=== PATIENT | male | born 2005 | race Two or more races ===

== ENCOUNTER 2025-02-08 21:40 | Emergency (ER) | payer MEDICAID, SELFPAY ==
[2025-02-08 21:41] VITALS: BMI 25.8
[2025-02-08 22:15] VITALS: BP 127/78; PULSE 94; RESP 17; TEMP 37.8; O2SAT 99
--- NOTE | 2025-02-08 22:15 | XR_ITS ---
Examination: PA chest single view Technique: Upright PA chest single view Date and time: February 08, 2025, 10:20 PM Indications: Shortness of breath today. Findings: Normal heart size Lungs are clear. The osseous structures are intact Impression: No active disease
--- NOTE | 2025-02-08 22:15 | PD.EDFEVER ---
ED Fever RME/HPI General Chief Complaint: Fever Stated Complaint: FEVER, LEFT TESTICULAR PAIN Time Seen by Provider: 02/08/25 22:16 Arrival date/time: 02/08/25 21:40 RME / HPI RME / HPI Narrative: See MDM for Dr. Meek's HPI documentation. Related Data Previous Rx's ?Medication ?Instructions ?Recorded ibuprofen 600 mg tablet 600 mg PO Q6H PRN fever or pain 05/25/22 #30 tabs ciprofloxacin HCl 500 mg tablet 500 mg PO BID #20 tabs 02/09/25 (Cipro) Allergies Allergy/AdvReac Type Severity Reaction Status Date / Time No Known Allergies Allergy Verified 02/08/25 21:41 Review of Systems Review of Systems Systems Reviewed: All systems reviewed, normal except as documented Physical Exam Narrative Physical exam: See MDM for Dr. Meek's physical exam documentation. Course Course Course Narrative: CXR is ordered for determining the etiology of fever. Quality Measures none Orders Category Date Time Status Bedside COVID-19 Antigen Test NOW Care 02/08/25 22:15 Completed Bedside Influenza A&B Antigen Test NOW Care 02/08/25 22:15 Completed US testicular Stat Exams 02/08/25 22:52 Completed XR chest 1V portable Stat Exams 02/08/25 22:15 Completed UA, C/S IF [Urinalysis, C/S if Indicated] Stat Lab 02/08/25 23:11 Completed Acetaminophen Tab [Tylenol ES Tab] Med 02/08/25 22:15 Discontinued 1,000 mg PO X1 ONE Azithromycin Po [Zithromax PO] Med 02/09/25 00:17 Discontinued 1,000 mg PO X1 ONE cefTRIAXone [Rocephin] 1,000 mg Med 02/09/25 00:17 Discontinued Lidocaine 1% 20 ml [Xylocaine 1% 20 ML] 2.1 ml IM X1 predniSONE Med 02/08/25 22:15 Discontinued 60 mg PO X1 ONE Vital Signs Vital signs: Vital Signs Temperature 100.0 F 02/08/25 22:15 Pulse Rate 94 02/08/25 22:15 Respiratory Rate 17 02/08/25 22:15 Blood Pressure 127/78 02/08/25 22:15 Pulse Oximetry (%) 99 02/08/25 22:15 Oxygen Delivery Method Room Air 02/08/25 22:15 Fever MDM Narrative [facility] Narrative:: This section includes all my notes and documentations, including HPI, PE, and ED course. Benja Meek MD HPI: 19yo male here with fever, chills, cough, and body aches for the last couple days. And worsening left testicular pain with swelling and redness for about a week. No dysuria or hematuria. No other complaints reported. ROS: All negative except as documented in HPI. Physical Exam: General: Alert and oriented. No acute distress when remaining still. Eyes: Conjunctivae and lids clear. ENT: No nasal congestion. Pharynx normal. TM normal bilaterally. Neck: Supple. Heart: RRR. Lungs: No respiratory distress. Good air movement with scattered rhonchi. Abdomen: Soft and nontender. Normal bowel sounds. No distension. No rebound or guarding. Back: No CVA tenderness. Skin: Warm and dry. Neuro: Alert and oriented X 3. Genitalia: Remarkable for left testicular edema/erythema/calor/tenderness. I reviewed all diagnostic test results. My interpretation of the chest x-ray is NAD. My review of the testicular US report is left epididymitis. UA unremarkable. COVID/Influenza negative. At this point, diagnoses include: Epididymitis URI (upper respiratory infection) Treatment here included: Tylenol 1g PO Prednisone 60mg PO Rocephin 1g IM Azithromycin 1g PO Recommended outpatient care. Based on my best medical judgment, made decision no further evaluation or treatment indicated at this time. Patient understands and agrees to the discharge instructions customized and printed, see below. Discharge Instructions from Dr. Meek: --After evaluation, your left testicular symptoms are due to epididymitis. This is inflammation/infection of a coiled tube called the epididymis inside the scrotum. The epididymis collects and stores sperm made by the testicles. --Epididymitis is often caused by bacteria in the urinary tract. --Take Cipro as prescribed. --Apply ice or heat if helpful. --Wear athletic supporter as needed. --You also have upper respiratory infection, see attached handout, causing cough and fever. --Tylenol 1000 mg alternating with ibuprofen 800 mg every 4 hours today and tomorrow scheduled. Then as needed for fever/pain. --For good hydration, increase oral fluid and maintain clear urine. If dark or yellow, increase oral fluid. With fever, you need extra fluid. --See a private doctor on 02/11/2025 for recheck. Ask to review all test results and official radiology reports, to make sure you receive all necessary follow-ups and monitoring. Ask to help until you are completely better. Ask for help with referral to see Urologist (unfortunately, we don't have urology service here in the ER). --Seek immediate medical care with worsening or with any concerns. Benja Meek MD Patient data External records reviewed:: [facility] previous records (Per chart review, patient has no relevant previous ED visits.) Clinical information provided by:: patient Social determinants that could affect healthcare access:: none Patient has the following chronic illnesses:: none How is presenting disease/condition affected by chronic disease/condition?: no chronic disease Evaluation data The following diagnostics were reviewed and interpreted by me:: lab results and radiology exam(s) Lab and/or radiology exams considered but not ordered:: none Interpretation Summary: I reviewed all diagnostic test results. My interpretation of the chest x-ray is NAD. My review of the testicular US report is left epididymitis. UA unremarkable. COVID/Influenza negative. Medications / Prescriptions Medications or Prescriptions considered but not ordered:: none Medication administrations:: Medication Administration History Discontinued Medications Acetaminophen (Acetaminophen 500 Mg Tablet) 1,000 mg PO X1 ONE Stop: 02/08/25 22:16 Last Admin: 02/08/25 22:32 Dose: 1,000 mg Documented By: CVL Azithromycin (Azithromycin 250 Mg Tablet) 1,000 mg PO X1 ONE Stop: 02/09/25 00:18 Last Admin: 02/09/25 00:27 Dose: 1,000 mg Documented By: CVL Ceftriaxone Sodium 1,000 mg/ (Lidocaine HCl 2.1 ml) 0 mg IM X1 ONE Stop: 02/09/25 00:18 Last Admin: 02/09/25 00:28 Dose: 1,000 mg Documented By: CVL Prednisone (Prednisone 20 Mg Tablet) 60 mg PO X1 ONE Stop: 02/08/25 22:16 Last Admin: 02/08/25 22:32 Dose: 60 mg Documented By: CVL Tylenol 1g PO Prednisone 60mg PO Rocephin 1g IM Azithromycin 1g PO Consultations Consultation(s) initiated? (list below): No Diagnosis Fever Differential Diagnosis: community acquired pneumonia, viral infection, influenza and other (COVID, UTI) Most likely diagnosis given after review of the tests above:: Epididymitis URI (upper respiratory infection) Admission Indicated Admission indicated?: not indicated Explain why admission is indicated or not indicated:: With no condition needing emergent intervention, there was no indication for admission. Admission Request Was there a request for admission?: No Disposition Plan Disposition Plan: Discharge Discharge Attestation Discharge Attestation: The patient and all family members were given an opportunity to ask questions and understood the discharge instructions. Discharge instructions specifically effects, indications for sooner follow up or return to the emergency department, and the expected course of current diagnosis. Patient condition: Stable Discharge Plan Plan Patient Disposition: HOME (Self Care) Prescriptions/Referrals Prescriptions/Med Rec: New ciprofloxacin HCl [Cipro] 500 mg tablet 500 mg PO BID Qty: 20 0RF No Action ibuprofen 600 mg tablet 600 mg PO Q6H PRN (Reason: fever or pain) Qty: 30 0RF Referrals: Perez Fraga MD [Primary Care Provider, Family Practice] - In 1 week Problem List Clinical Impression: Epididymitis, URI (upper respiratory infection) Patient/Caregiver Discharge Instructions Discharge Activity: activity as tolerated Education Materials: ED Epididymitis, ED URI, Viral, No Abx (Adult) Additional Instructions: Discharge Instructions from Dr. Meek: --After evaluation, your left testicular symptoms are due to epididymitis. This is inflammation/infection of a coiled tube called the epididymis inside the scrotum. The epididymis collects and stores sperm made by the testicles. --Epididymitis is often caused by bacteria in the urinary tract. --Take Cipro as prescribed.?? --Apply ice or heat if helpful. --Wear athletic supporter as needed. --You also have upper respiratory infection, see attached handout, causing cough and fever. --Tylenol 1000 mg alternating with ibuprofen 800 mg every 4 hours today and tomorrow scheduled. Then as needed for fever/pain. --For good hydration, increase oral fluid and maintain clear urine. If dark or yellow, increase oral fluid. With fever, you need extra fluid. --See a private doctor on 02/11/2025 for recheck. Ask to review all test results and official radiology reports, to make sure you receive all necessary follow-ups and monitoring. Ask to help until you are completely better. Ask for help with referral to see Urologist (unfortunately, we don't have urology service here in the ER). --Seek immediate medical care with worsening or with any concerns. Print Language: Cambodian Stand Alone Forms: Sara Award Info., Patient Portal Info Letter
[2025-02-08] MEDS: ACETAMINOPHEN 500 MG TABLET 1000 MG PO (22:32)
--- NOTE | 2025-02-08 22:52 | XR_ITS ---
Examination: Testicular sonography complete Technique: Grayscale sonographic images testes, assessment arterial inflow venous outflow Doppler spectral analysis carful analysis Date and time: February 08, 2025, 11:24 PM Indications: Onset left testicular pain beginning 5 days ago Findings: Right testis 4.5 cm epididymis 1.1 cm 4 mm epididymal cyst Arterial flow testicle. No testicular mass Mild hydrocele Left testis 4.7 cm epididymis 1.3 cm Arterial flow testicle. Increased flow to the left testicle No testicular mass Moderate hydrocele Impression: Left proctitis Left epididymitis
[2025-02-08 23:21] LABS: Collection Type, Urine Clean Catch
[2025-02-08 23:38] LABS: Bilirubin,Urine Negative (Negative); Blood,Urine 2+ (Negative); Clarity,Urine Clear (Clear/Hazy); Color,Urine Yellow (Lt Yel-Yel); Culture Indicated,Urine Not Indicated; Glucose, Urine Negative (Negative); Ketones,Urine 2+ (Negative); Leukocyte Esterase,Urine Negative (Negative); Nitrite,Urine Negative (Negative); PH,Urine 6.0 (5.0-7.0); Protein,Urine 1+ (Neg - Trace); RBC,Urine 14 /hpf (0-3); Specific Gravity,Urine 1.040 (1.001-1.035); Squamous Epithelial Cell,Urine < 1 /hpf (0-5); Urobilinogen,Urine 2.0 mg/dL (0.0-1.0); WBC,Urine 2 /hpf (0-5)
[2025-02-09] MEDS: AZITHROMYCIN 250 MG TABLET 1000 MG PO (00:27)
[2025-02-09] MEDS: cefTRIAXone 1,000 MG, LIDOCAINE 1% 20 ML 2.1 ML IM (00:28)
[2025-02-09 00:37] VITALS: RESP 18
== END 2025-02-09 00:38 | disposition home or self-care (01) ==
PROVIDERS: Emergency Provider Emergency Medicine; PCP Family Medicine
DX: N45.1 Epididymitis (principal); J06.9 Acute upper respiratory infection, unspecified; Z11.52 Encounter for screening for COVID-19
CPT/HCPCS: 71045; 76870; 81001; 87400; 87811; 96372; 99284; J0696; J3490; J7512; A9270